=== PATIENT | female | born 1930 | race Caucasian/White ===

== ENCOUNTER 2017-02-17 20:56 | Inpatient (IN) | payer MEDICARE ==
[~2017-02-17] VITALS: Ht 160 cm; Wt 68.0 kg
[2017-02-17] MEDS ORDERED: ZOCOR40 MG PO (21:18)
[2017-02-17] MEDS ORDERED: COUMADIN1 MG PO (21:19)
[2017-02-17] MEDS ORDERED: LANTUS SOL100 UNIT/1 SUB-Q (21:19)
[2017-02-17] MEDS ORDERED: ZESTRIL40 MG PO (21:19)
[2017-02-17] MEDS ORDERED: MAGNESIUM400 M1 PO (21:20)
[2017-02-17] MEDS ORDERED: CITALOPRAM HBR20 MG PO (21:20)
[2017-02-17] MEDS ORDERED: COREG25 MG PO (21:20)
--- NOTE | 2017-02-18 01:05 | NUR ---
PT ARRIVED TO UNIT VIA STRETCHER FROM E.D. PT BELONGINGS LEFT WITH DAUGHTER WHO DID NOT COME TO DEPARTMENT WITH PT. PT ALERT AND ORIENTED ALTHOUGH POOR HISTORIAN WITH HEALTH HISTORY. PT HAS PACEMAKER. PT CAME TO FLOOR ON 2 LPM O2 VIA NASAL CANNULA. PT TRANSFERRED FROM STRETCHER TO BED VIA HOVERMAT WITH x4 ASSIST. PT HAS HI IN PLACE, CLEAR YELLOW URINE DRAINING. RIGHT LEG IS VISIBLY SHORTER THAN LEFT LEG, PT C/O 6-7/10 PAIN, 0.5 MG IV DILAUDID GIVEN. IV SALINE LOCKED, FLUSHES WELL, PATENT AND INTACT. PT DOZING INTERMITTENTLY THOUGH ASSESSMENT, WAKES EASILY TO VERBAL STIMULATION. REGULAR DIET ORDERED FOR PT, WATER GIVEN PER PT REQUEST. CALL LIGHT WITHIN REACH, PT EDUCATION PROVIDED. PT DENIES ANY FURTHER NEEDS AT THIS TIME.
--- NOTE | 2017-02-18 03:00 | NUR ---
DAUGHTER CALLED FOR UPDATE, DAUGHTER [facility] ROOM [facility] IN CASE UNABLE TO REACH BY CELLPHONE AT ANY TIME. PT SLEEPING, RR EVEN AND UNLABORED. PT APPEARS COMFORTABLE AT THIS TIME. CALL LIGHT WITHIN REACH.
--- NOTE | 2017-02-18 04:53 | NUR ---
PT SLEEPING, RR EVEN AND UNLABORED. PT ON 2 LPM O2 VIA NASAL CANNULA. PT APPEARS COMFORTABLE AT THIS TIME. HI DRAINING WITHOUT DIFFICULTY. CALL LIGHT WITHIN REACH.
--- NOTE | 2017-02-18 07:38 | NUR ---
RECIEVED BEDSIDE REPORT FROM SHREYA ARCHER. PT SLEEPING, BREATHING EVEN AND UNLABORED.
--- NOTE | 2017-02-18 10:14 | NUR ---
CALLED DR GREENBERG RE: MAINTINANCE FLUIDS. SHE DOES NOT WANT TO ORDER FLUIDS AT THIS TIME. DR. GREENBERG WILL LOOK AT CHART PRIOR TO ADDING PAIN MEDICATION.
--- NOTE | 2017-02-18 11:09 | NUR ---
PT RESTING IN BED WITH EYES CLOSED. PT OPEN EYES TO ACTIVITY IN ROOM, STATED SHE WAKES EASY AND TO WAKE HER UP IF NEEDED. ENCOURAGED PT TO DRINK WATER.
[2017-02-18] MEDS ORDERED: CARVEDILOL25 MG PO (11:21)
[2017-02-18] MEDS ORDERED: BUMETANIDE1 MG PO (11:21)
[2017-02-18] MEDS ORDERED: TYLENOL EXTRA500 MG PO (11:24)
[2017-02-18] MEDS ORDERED: VITAMIN D2000 UNI1 PO (11:24)
[2017-02-18] MEDS ORDERED: CBD LOTION TOP (11:25)
--- NOTE | 2017-02-18 11:27 | NUR ---
MED REC COMPLETE--PER FAMILY
--- NOTE | 2017-02-18 11:43 | NUR ---
PT RESTING IN BED. SHE IS ALERT AND SOMEWHAT ORIENTED. BY HER ACCENT I COULD TELL SHE WAS NOT ORIGIONALLY FROM [place]. SHE SHARED WITH ME THAT SHE ESCAPED [place] DURING [place]. SHE IS HERE WITH HER DAUGHTER AND SON IN LAW AT THE [place] WHEN SHE FELL. SHE FELS SHE IS BEING PUNISHED FOR GAMBLING AT [employer]. PT REQUESTED PRAYER, WILL FOLLOW NEEDED
--- NOTE | 2017-02-18 13:55 | NUR ---
CALLED DR GREENBERG REGARDING LOW URINE OUTPUT. PT HAD 58ML OUTPUT IN [address] GREENBERG STATED TO ENCOURAGE FLUID INTAKE. SHE DOES NOT WANT TO START IV FLUIDS DUE TO HX OF CHF.
--- NOTE | 2017-02-18 14:16 | NUR ---
PT SLEEPING, SOFTLY SNORING. PT APPEARS TO BE RELAXED AND COMFORTABLE.
--- NOTE | 2017-02-18 15:54 | NUR ---
TALKED WITH PT AND HER DAUGHTER THIS AM REGARDING WHERE THEY WANT HER TO GO FOR REHAB AND THEY BOTH STATED THEY WANTED HER TO GO TO [facility] IN [place]. I CALLED AND TALKED WITH LM AT [facility] AND SHE WOULD LIKE US TO FAX PAPERWORK AFTER HER SURGERY. PHONE NUMBER TO [facility] IS [phone] AND FAX IS [phone]. TOLD HER I WOULD FAX SOON THERE WERE RESULTS FROM OR AND PT NOTES. SHE DID STATE THEY HAVE BEDS OPEN NOW.,
--- NOTE | 2017-02-18 16:18 | NUR ---
ATTEMPTED IV START X6 BY 3 RNS, UNSUCCESSFUL. PT HAS LIMITED ALEX ACCESS, FIELD START IS PATIENT. PT BECAME VERY AGITATED AND UPSET. PT WAS GIVEN IV DILAUDID FOR HIP PAIN. ICE PACK APPLIED TO HIP WELL. PT RELAXING WITH WARM BLANKETS NOW. WILL REATTEMPT AT A LATER TIME.
--- NOTE | 2017-02-18 16:39 | NUR ---
Didn't feel like having a bed bath today because had one yesterday.
--- NOTE | 2017-02-18 17:38 | NUR ---
PT RIGHT HIP VERY PAINFUL, PRN DILAUDID EFFECTIVE. 3 RNS ATTEMPTED IV START X4, UNSUCESSFUL. PT WAS VERY AXIOUS AND TENSE R/T IV ACCESS. FIELD START IS FLUSHING WELL. PT IS MORE RELAXED AT THIS TIME, REPORTED SOME NAUSEA R/T STRESS FROM IV ATTEMPTS. ZOFRAN EFFECTIVE. PT DECLINING TO EAT MUCH, IS DRINKING ENSURE. LOW URINE OUTPUT IN MD SUSSY AWARE. ENCOURAGE FLUID INTAKE.
--- NOTE | 2017-02-18 18:49 | NUR ---
PT DECLINED PAIN MEDICATION AT THIS TIME, STATED "I'M GOOD FOR RIGHT NOW". PT IS AWAKE AND ALERT, RESTS WITH EYES CLOSED. PT'S DAUGHTER AND POA WILL BE IN TO SIGN CONSENT IN EARLY AM.
--- NOTE | 2017-02-18 19:36 | NUR ---
CALLED DR GREENBERG REGARDING LOW URINE OUTPUT OF 75 MLS OVER LAST 4 HOURS, NO NEW ORDERS AT THIS TIME. STATES IF URINE OUTPUT THE SAME DURING THE NIGHT, A CALL DOES NOT NEED TO BE MADE. NO NEW ORDERS FOR MIDNIGHT ONCE PT NPO FOR SURGERY.
--- NOTE | 2017-02-18 21:01 | NUR ---
PT ASSESSMENT COMPLETE. PT RATES PAIN 8-9/10, IV DILAUDID GIVEN. IV POSITIONAL, LEAKS OCCASSIONALLY, WILL CONTINUE TO MONITOR. ICE PACK TO RIGHT HIP, NO BRUISING NOTED, SKIN INTACT. IV SALINE LOCKED. PT SATS 97% ON 2 LPM O2 VIA NASAL CANNULA PER CONTINUOUS PULSE OXIMETER. HI IN PLACE, MINIMAL URINE OUTPUT, MD AWARE. PT DENIES ANY N/V AT THIS TIME. PT ALERT AND ORIENTED, FORGETFUL AT TIMES. CALL LIGHT WITHIN REACH. PT DENIES ANY FURTHER NEEDS AT THIS TIME.
--- NOTE | 2017-02-19 00:22 | NUR ---
PT C/O PAIN, IV LEAKING WITH NO BLOOD RETURN, PT PAINFUL WITH FLUSH, DC'D WITH CATHETER TIP INTACT. x5 ATTEMPTS WITH NO SUCCESS. CALLED MD, NO NEW ORDERS AT THIS TIME.
--- NOTE | 2017-02-19 01:00 | NUR ---
LEAD CARGOMAN CALLED TO ATTEMPT IV START WITH ULTRASOUND. LEAD CARGOMAN ATTEMPTED x3 WITH NO SUCCESS. MD CALLED AND NOTIFIED. PT HAS NO IV ACCESS AT THIS TIME. RECEIVED x1 IM MORPHINE ORDER FOR PAIN. PT RATES PAIN 6/10. CALL LIGHT WITHIN REACH. PT DENIES ANY FURTHER NEEDS AT THIS TIME.
--- NOTE | 2017-02-19 07:04 | HP ---
[facility] [address], [place] [address] Signed HISTORY OF PRESENT ILLNESS: Ms. Pederson is an 86-year-old white female who was doing well until last night. She was out at the [facility] when she took a fall that she went to move from one slot machine to another. Because she was unable to ambulate and having variety of pains, she was brought to the emergency room. She was seen by Dr. Gardner. Dr. Gardner evaluated her numerous complaints. Examination and CT scanning of her head and neck we re unremarkable as far x-rays of her ankles and wrist. However, x-rays of her pelvis and right hip revealed a displaced intertrochanteric hip fracture. She was admitted to the Orthopedic service after Dr. Gardner called me. PAST MEDICAL HISTORY: She is an in sulin-dependent diabetic and has significant peripheral vascular disease and is on a chronic Coumadinization for chronic atrial fibrillation. CURRENT MEDICATIONS: Reviewed by the Hospitalist business systems consultant. ALLERGIES: She denies any medical allergies. PHYSICAL EXAMINATION: GENERAL: On examination, she is elderly female with a mild Kiswahili accent. On examination, she is alert and oriented in really no acute distress, lying in bed. HEENT: Head, ears, eyes, nose, and throat did not reveal any evidence of craniofacial trauma. CHEST: Clear. CARDIAC: Exam reveals an irregular rhythm. ABDOMEN: Nontender. There is no evidence of chest trauma. EXTREMITIES: In terms of the extremities, there is no evidence of trauma i.e., swelling, bruising, or deformity to either of her uppe r extremities and they have a functional range of motion at the shoulders, elbows, wrist, and hands. In terms of her lower extremities, the right leg is severely shortened and externally rotated. She has diminished sensation, but that is symmetrical in waldo th of her feet and the same can be said of her pedal pulses. Her skin, however, is intact over the hip. RADIOLOGIC DATA: X-rays were reviewed along with the x-ray report. She has an intertrochanteric fracture that has fallen into varus and some flexion. We have reviewed with her the treatment alternatives. I have also explained our general recommendation for internal fixation of this particular fracture to decrease overall morbidity and mortality and to mobilize her expeditiously. After outlining all the potential risks and complications, she was agreeable with proceeding. We explained to her, however, that because her chronic coumadinization, we will need to reverse her Electronically Signed By: ELENITA FLEMING MD 02/19/17 0704 PATIENT NAME: JENNIFER PEDERSON HISTORY AND PHYSICAL DATE OF : 32 PHYSICIAN: ELENITA FLEMING MD REPORT #: [id number] REPORT IS CONFIDENTIAL AND NOT TO BE RELEASED WITHOUT AUTHORIZATION [address] [address] Signed anticoagulation. I have told her we will give her some vitamin K today, which I discu ssed with Dr. Zayas and she concurred. We will then plan on hip surgery tomorrow if her repeat INR is less than 1.5. MD FELICIA Ho/Phyllis / [phone] Electronically Signed By: ELENITA FLEMING MD 02/19/17 0704 PATIENT NAME: JENNIFER PEDERSON HISTORY AND PHYSICAL DATE OF : 32 PHYSICIAN: ELENITA FLEMING MD REPORT #: [id number] REPORT IS CONFIDENTIAL AND NOT TO BE RELEASED WITHOUT AUTHORIZATION
--- NOTE | 2017-02-19 08:03 | NUR ---
RECIEVED BEDSIDE REPORT FROM SHREYA ARCHER. PT AWAKE AND ALERT IN BED. PT STATED THE IM PAIN MEDICATION WAS EFFECTIVE. PT STATED SHE WAS COLD ALL NIGHT, BLANKETS REPLACED, ROOM TEMP INCREASED. PT RELAXED.
--- NOTE | 2017-02-19 09:01 | NUR ---
CALL FROM [facility], OR CHARGE NURSE. PT INR 2.1, TOO HIGH FOR SURGERY. ORDERED AN ADDITIONAL VIT K DOSE WITH A LAB DRAW AT 1500.
--- NOTE | 2017-02-19 10:14 | NUR ---
PICC LINE PLACED BY SHREYA CARLISLE. PT TOLERATED WELL. VIT K GIVEN. PT TOLERATED WELL. DR. FLEMING ROUNDED ON PT, ADVISED OF INR 2.1, PLAN OF CARE VIT K AND FROZEN PLASMA. WAITING FOR VERIFICATION OF PICC PLACEMENT.
--- NOTE | 2017-02-19 10:21 | NUR ---
ORAL AND HI CATH CARE DONE. ADJUSTED PATIENT IN BED TO LEFT SIDE. HANDS AND FACE WASHED. PATIENT IN BED WITH CALL BUTTON IN REACH. HAS NO OTHER NEEDS AT THIS TIME.
--- NOTE | 2017-02-19 10:33 | NUR ---
PER MAYLIN, RN DO NOT USE PICC LINE PLACEMENT HAS NOT BEEN VERIFIED. XRAY ENROUTE TO TAKE ADDITIONAL IMAGES.
--- NOTE | 2017-02-19 11:11 | NUR ---
ASKED BY DR. GREENBERG AND DR. FLEMING TO EVALUATE PATIENT FOR POSSIBLE PICC LINE PLACEMENT. PT HAS REPORTEDLY HAD OVER 12 IV ATTEMPTS FOR A PERIPHERAL LINE WITHOUT MUCH SUCCESS. AFTER REVIEWING THE CHART AND INTERVIEWING THE PATIENT, NO ABSOLUTE CONTRAINDICATIONS WERE IDENTIFIED. PATIENT HAS A PACEMAKER ON THE LEFT SIDE OF CHEST, RULING OUT THE LEFT SIDE FOR POTENTIAL PICC LINE PLACEMENT. THE RIGHT ARM WAS NOTED TO HAVE SOME VISIBLE BRUISING ON THE RIGHT UPPER ARM FROM PREVIOUS IV START ATTEMPTS. THE RIGHT ARM WAS EVALUTED USING THE SITE RITE U/S, AND THE BASILIC VEIN WAS LOCATED EASILY AND FOUND TO BE GREATER THAN 8 FR. THE BRACHIAL VEIN WAS ALSO IDENTIFIED AND NOTED TO BE AROUND 7-8 FR BY SITE RITE U/S. THE BASILIC VEIN WAS ACCESSED ON THE FIRST TRY WITHOUT DIFFICULTY, AND THE GUIDEWIRE WAS ADVANCED WITHOUT DIFFICULTY. UPON INSERTING THE PICC LINE, THERE WAS RESISTANCE FELT WHEN THERE WERE 10 CM LEFT TO ADVANCE. THE [employer] GUIDE U/S DEVICE ALSO SHOWED THE CATHETER TO BE SUPERFICIAL. CHEST XRAY WAS TAKEN AND FOUND TO CURLED BACK ON ITSELF. CATHETER PULLED BACK AND THEN REINSERTED, PATIENT TILTED HER HEAD TO THE RIGHT. CATHETER ADVANCED FORWARD WITHOUT DIFFICULTY THIS TIME. ANOTHER CHEST XRAY TAKEN. GUIDEWIRE NOTED TO BE FARTHER ADVANCED THAN THE PICC LINE. GUIDEWIRE THEN REMOVED AND AWAITED CALL FROM RADIOLOGIST. RADIOLOGIST CALLED AT 1030 AND REQUESTED A THIRD CHEST XRAY. CHEST XRAY BEING COMPLETED AT 1120 AND WAITING FURTHER CONFIRMATION FROM RADIOLOGIST.
--- NOTE | 2017-02-19 12:07 | NUR ---
DISCUSSED PT'S PICC LINE WITH DR. CLEVELAND AFTER THIRD CHEST XRAY. PICC LINE PULLED BACK 6 CM IT APPEARED TO HAVE BEEN TOO DEEP. REPEAT CHEST XRAY TAKEN AND PENDING FURTHER DISCUSSION WITH DR. CLEVELAND. RN CARING FOR PATIENT UPDATED ON STATUS OF PICC AND TOLD TO CONTINUE HOLDING OFF BEFORE USING PICC LINE.
--- NOTE | 2017-02-19 12:42 | NUR ---
WAITING FOR PICC VERIFICATION FROM SHREYA CARLISLE.
--- NOTE | 2017-02-19 13:00 | NUR ---
PICC LINE OKAY TO USE PER DR. CLEVELAND. REPORT GIVEN TO SHREYA BARTON.
--- NOTE | 2017-02-19 13:16 | NUR ---
STARTED FROZEN PLASMA INFUSION. VITAL TAKEN. NO ITCHING, CHILLS, PAIN, CONFUSION, NAUSEA, HEADACHE.
--- NOTE | 2017-02-19 13:25 | NUR ---
BLOOD PRODUCTS DOUBLE CHECKED BY SHREYA BARTON AND SHREYA MISHRA.
--- NOTE | 2017-02-19 13:26 | NUR ---
PT IS TO HAVE SURGERY LATER THIS AFTERNOON. SHE SEEMS TO BE IN GOOD SPIRITS. HAD HER LAUGHING AND JOKING. SHE IS VERY COMPLIMENTARY OF THE CARE THE NURSES AND STAFF HAVE GIVEN HER. EXTENDED A BLESSING, WILL CONTINUE TO FOLLOW
--- NOTE | 2017-02-19 13:28 | NUR ---
PT REPORTS NO CHILLS, ITCHING, SWELLING, COUGHING, PAIN, SOB, OR HEADACHE AFTER 15 MINUTES OF INFUSION.
--- NOTE | 2017-02-19 14:08 | NUR ---
PT TOLERATING PLATELETS WELL. NO COMPLAINTS OF CHILLS, SOB, ITCHING, HEADACHE, OR PAIN. VSS.
--- NOTE | 2017-02-19 14:17 | NUR ---
STARTED SECOND BAG OF PLATLETTES. DOUBLE CHECKED BY SHREYA RENEE AND SHREYA MISHRA. VSS, PT REPORTS NO NAUSEA, ITCHING, CHILLS, HEADACHE OR PAIN.
--- NOTE | 2017-02-19 14:28 | NUR ---
PT TOLERATING INFUSION WELL. NO REPORTS OF CHILLS, SOB, PAIN, ITCHING, OR HEADACHE. INCREASED RATE OF TRANSFUSION.
--- NOTE | 2017-02-19 15:30 | NUR ---
PT RESTING WITH EYES CLOSED. TOLERATED INFUSION WELL. PT WIPED DOWN FOR SURGERY. DENTURES REMOVED. INR SENT TO LAB.
--- NOTE | 2017-02-19 16:03 | NUR ---
PT LEFT FOR SURGERY WITH SHREYA DAUGHERTY.
--- NOTE | 2017-02-19 17:52 | NUR ---
PT HAD PICC LINE PLACED IN RIGHT ARM. PT RECIEVED 2 BAGS OF FROZEN PLASMA AND DOSE OF VIT K PRIOR TO SURGERY. PT VERY PAINFUL WITH MOVEMENT. AFTER PRE-OP WIPE DOWN, PT DEVELOPED RED RASHY AREAS ON TRUNK AND FACE WITH SWOLLEN LIPS. AWAREMARCUS ORDERED AND EFFECTIVE. INR 1.4 PRIOR TO SURGERY.
--- NOTE | 2017-02-19 18:42 | NUR ---
02/19/17 184 Shara Kaufman 1835 - pt arrived to pacu. maintaining own airway. cbg = 200, bail bonding agent aware, states no action needed at this time, insulin can continue when pt begins eating on the floor.
--- NOTE | 2017-02-19 19:39 | NUR ---
RECEIVED REPORT FROM DAY SHIFT RN. PATIENT MOVED TO ROOM 120 FROM ROOM 122 BECAUSE PACU STATED "PATIENT MAY NEED TO BE WATCHED A LITTLE EXTRA, PATIENT HAS BEEN PICKING AT TUBES". PATIENT ARRIVED TO THE FLOOR AROUND 193. PATIENT IS DROWSY BUT EASY TO AROUSE. PATIENT DENIES ANY PAIN. PATIENT IS ON 2L VIA NC. PATIENT PLACED ON PULSE OX AND READINGS ARE WNL. PATIENTS IST SET OF POST OP VITALS TAKEN. PATIENTS BED ALRM IS PLACED ON FOR SAFETY. CALL LIGHT IN REACH.
--- NOTE | 2017-02-19 20:05 | NUR ---
CALLED DAUGHTER ANGELITA AND UPDATED THAT PT OUT OF SURGERY AND NOW IN ROOM 120. DAUGHTER STATES SHE WILL BE HERE TO VISIT SHORTLY.
--- NOTE | 2017-02-19 21:48 | NUR ---
PATIENT GIVEN NEW MEDICATIONS PER ORDER. PATIENT RATES PAIN AT A 4/10. PATIENT ASKED QUESTIONS ABOUT NEW MEDICATIONS. ALL QUESTIONS ANSWERED. PATIENT DENIES ANY FURTHER NEEDS. CALL LIGHT IS WITHIN REACH.
--- NOTE | 2017-02-19 22:05 | NUR ---
PATIENT ASSESMENT COMPLETED. PATIENTS POST OP VITALS COMPLETED AND RECORDED. PATIENTS EVENING MEDICATIONS GIVEN PER ORDER. DIAGNOSTIC IMAGING ON THE FLOOR @ 2029. PATIENT GIVEN PRN PAIN MEDICATION AFTER X-RAYS FOR 8/10 PAIN IN HER RIGHT HIP. PATIENT DENIES ANY FURTHER NEEDS. BED ALRM IS ON FOR SAFETY AND CALL LIGHT IS WITHIN REACH.
--- NOTE | 2017-02-19 22:26 | NUR ---
ALL POST OP VITALS COMPLETED AND RECORDED. PATIENT IS RESTING IN BED WITH EYES CLOSED, RR16. PULSE OX READINGS ARE WNL.
--- NOTE | 2017-02-20 00:17 | NUR ---
PATIENT IS RESTING IN BED WITH EYES CLOSED, PULSE OX READINGS ARE WNL. PATIENT SHOWS NO EXPRESSIONS OF PAIN OR DISCOMFORT
--- NOTE | 2017-02-20 01:51 | NUR ---
PATIENTS VITALS TAKEN AND RECORDED. PATIENT RATES PAIN AT A 4/10. PATIENT GIVEN SCHEDULED TYLENOL PER ORDER. PATIENT DENIES ANY FURTHER NEEDS AT THIS TIME. CALL LIGHT IS WITHIN REACH.
--- NOTE | 2017-02-20 03:27 | NUR ---
PATIENT IS RESTING IN BED WITH EYES CLOSED. PATIENT IS ON 4L VIA NC. PATIENT IS ON PULSE OX AND READINGS ARE WNL. CALL LIGHT IS WITHIN REACH.
--- NOTE | 2017-02-20 04:58 | NUR ---
PATIENT ARRIVED BACK TO THE FLOOR FROM SURGERY APPROX. 1930. PATIENT RECEIVED PRN PAIN MEDICATION X1. PATIENT HAS SCHEDULED TYLENOL. PATIENT IS ON A PULSE OX. PATIENT IS NOW ON 4L VIA NC. PATIENT HAS A PICC IN HER RIGHT ARM THAT FLUSHES WELL AND IS HEP LOCKED WHEN NOT IN USE. PATIENT HAS SCDS AND HEEL PROTECTORS. PATIENT IS ON AN ADA/CARDIAC DIET AND IS ADVANCE TOLERATED. PATIENT ATE SHERBERT ARRIVING BACK TO THE FLOOR. NO COMPLAINTS OF NAUSEA. PATIENT HAS A HI. PATIENT HAS AN ICE PACK APPLIED TO RIGHT HIP. PATIENTS DRESSING IS C/D/I. PATIENT IS AAOX3 BUT CAN BE FORGETFUL AT TIMES. BED ALARM PLACED ON FOR SAFETY.
--- NOTE | 2017-02-20 05:35 | NUR ---
PATIENTS VITALS TAKEN AND RECORDED. PATIENT RATES PAIN AT A 3/10. PATIENT DENIES THE NEED FOR PAIN MEDICATION. PATIENT GIVEN SUGAR FREE JUICE. PATIENTS ICE PACK REFILLED AND APPLIED TO RIGHT HIP. PATIENT DENIES ANY FURTHER NEEDS CALL LIGHT IN REACH.
--- NOTE | 2017-02-20 06:34 | NUR ---
PATIENTS MORNING MEDICATIONS GIVEN PER ORDER. PATIENT RATES PAIN AT A 2/10. PATIENT DENIES THE NEED FOR ANY PAIN MEDICATION AT THIS TIME. PATIENT REMAINS ON 3L VIA NC, PULSE OX READINGS WNL. CALL LIGHT IN REACH.
--- NOTE | 2017-02-20 06:49 | NUR ---
PLACED A CALL TO MD ABOUT PATIENTS LOW URINE OUTPUT. NO NEW ORDERS AT THIS TIME.
--- NOTE | 2017-02-20 08:00 | NUR ---
PT SITTING UP IN BED EATING BREAKFAST INDEPENDENTLY. STATES "WHEN I'M NOT MOVING MY HIP DOESN'T HURT AT ALL." DENIES PAIN OR NAUSEA AT THIS TIME. ALERT AND ORIENTED TO ALL BUT CAN BE FORGETFUL. RIGHT HP DRESSING CDI, NO DRAINAGE NOTED. 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 PICC LINE FLUSHES WELL WITH GOOD BLOOD RETURN, DRESSING CDI. CALL LIGHT WITHIN REACH.
--- NOTE | 2017-02-20 08:56 | NUR ---
PATIENT AWAKE RESTING IN BED. SHE DID NOT ENJOY HER BREAKFAST, I OFFERED HER SOMETHING ELSE BUT SHE DENIED. PATIENT IS VERY PLEASENT AND STATED SHE DID NOT NEED ANYTHING AT THIS TIME.
--- NOTE | 2017-02-20 11:45 | NUR ---
PT VERY PAINFUL STATING SHE IS HAVING "EXTREME PAIN." MEDICATED WITH PRN OXY. OFFERED TO REPOSITION PT FOR COMFORT, SHE REFUSED STATING IT HURTS TOO MUCH. CALL LIGHT AND PERSONAL ITEMS WITHIN REACH.
--- NOTE | 2017-02-20 11:48 | NUR ---
GOOD VISIT WITH PT. AT TIMES SHE STRUGGLED TO COMPLETE HER THOUGHTS, BUT SEEMED TO TAKE IT IN STRIDE. TALKED ABOUT HOW MUCH SHE ENJOYED HER VISITS TO [place], AND WOULD GO AGAIN! HER DAUGHTER AND SON IN LAW CAME. I BROUGHT HER A PRAYER SHAWL, SHE SEEMED TO REALLY ENJOY IT. SHE MAKES THEM FOR THE HOSPITAL [place], SHE WILL BE GOING TO A SNF THERE. HAD PRAYER , WILL CONTINUE TO FOLLOW
--- NOTE | 2017-02-20 14:40 | NUR ---
PT ASSISTED UP TO COMMODE FOR BM. PT REQUIRED 3 PERSON ASSIST. PT VERY PAINFUL WITH MOVEMENT, CRYING OUT DURING TRANSFER. PT WAS ABLE TO BARE WEIGHT AND TAKE SMALL PIVOT STEPS WITH WALKER TO BSC. SITTING ON COMMODE NOW GETTING BED BATH BY DISH ROOM WORKER. CALL LIGHT WITHIN REACH.
--- NOTE | 2017-02-20 14:57 | NUR ---
PATIENT UP TO COMMODE TO WITH 3 PERSON ASSIST. PATIENT BECAME FAINT ON WAY BACK TO BED. DISCUSS WITH DR. GREENBERG ON WHETHER WE SHOULD REPEAT H/H LABS.
--- NOTE | 2017-02-20 16:35 | NUR ---
PT RESTING IN BED ON BACK WITH EYES CLOSED, RESP EVEN AND UNLABORED.
--- NOTE | 2017-02-20 17:03 | NUR ---
PT MEDICATED WITH 10MG PO OXY FOR C/O 5 PAIN RIGHT HIP PAIN. PT REPORTS BEING FEARFUL OF FALLING AGAIN AND OF BEING PAINFUL. THERAPEUTIC COMMUNICATION COMPLETED. PT DENIES FURTHER NEEDS OR CONCERNS. CALL LIGHT WITHIN REACH.
--- NOTE | 2017-02-20 18:14 | NUR ---
PT REPORTS THAT PAIN IS IMPROVING SLIGHTLY WITH INCREASED PAIN MEDS BUT PT IS BECOMING SLIGHTLY DISORIENTED. EASILY REORIENTED BUT OCC SAYS THINGS NOT APPROPRIATE TO SITUATION AND CANNOT KEEP CONSISTENT TRAIN OF THOUGHT. PT SLOWER TO RESPOND WITH ORIENTATION QUESTIONS BUT ANSWERS CORRECTLY.
--- NOTE | 2017-02-20 19:55 | NUR ---
RECEIVED REPORT FROM DAY SHIFT RN. PATIENT DENIES ANY PAIN AT THIS TIME. CALL LIGHT IS WITHIN REACH.
--- NOTE | 2017-02-20 21:49 | NUR ---
PATIENT ASSESMENT COMPLETED. PATIENT RATES PAIN IN HER RIGHT HIP AT A 6/10. PATIENT GIVEN PRN PAIN MEDICATION PER ORDER. PATIENT GIVEN EVENING MEDICATIONS PER ORDER. PATIENTS ICE PACK REFILLED AND APPLIED TO HER RIGHT HIP. PATIENT HAS A HI IN PLACE. OUTPUT IS LOW BUT QS. PATIENT PATIENT IS ON PULSE OX AND READINGS ARE WNL. PATIENT IS ON 3L VIA NC. PATIENTHAS A PICC IN HER RIGHT ARM AND IS ON CONTINUOUS FLUIDS. PATIENT IS AAO, BUT IS FORGETFUL AT TIMES. PATIENTS BED ALARM IS ON FOR SAFETY. CALL LIGHT IS WITHIN REACH.
--- NOTE | 2017-02-20 22:07 | NUR ---
ORAL CARE PERFORMED. DENTURES REMOVED AND PLACE IN CONTAINER IN THE BATHROOM.
--- NOTE | 2017-02-21 00:16 | NUR ---
PATIENT IS RESTING IN BED WITH EYES CLOSED. PULSE OX READINGS ARE WNL. CALL LIGHT IN REACH.
--- NOTE | 2017-02-21 02:51 | NUR ---
PATIENT REPOSITIONED IN BED. PATIENT IS VERY PAIN FUL WITH MOVEMENT. PATIENT GIVEN SCHEDULED TYLENOL AND PRN PAIN MEDICATION PER ORDER. PATIENT RATES PAIN AT A 7/10 IN HER RIGHT HIP. PATIENT DENIES ANY FURTHER NEEDS CALL LIGHT IS WITHIN REACH.
--- NOTE | 2017-02-21 04:46 | NUR ---
PATIENT IS RESTING I BED WITH EYES CLOSED. PATIENT REMAINS ON 3L VIA NC. PULSE OX READINGS ARE WNL.
--- NOTE | 2017-02-21 05:22 | NUR ---
PATIENT RESTED WELL THROUGHOUT THE SHIFT. PATIENT RECEIVED X2 PRN PAIN MEDICATION FOR RIGHT HIP PAIN. PATIENT HAS A HI IN PLACE. PATIENT IS ON A CARDIAC/ADA DIET AND HAS A DECREASED APPETITE. PATIENT HAS SCDS AND HEEL PROTECTORS IN PLACE. ICE PACK APPLIED TO RIGHT HIP. PATIENTS DRESSIN SAHRA RIGHT HIP IS C/D/I, WITH NO SHADOWING PRESENT. PATIENT IS AAO, BUT AT TIMES IS FORGETFUL AND CONFUSED. PATIENT IS EASILY REORIENTED. PATIENT IS ON 3L VIA NC. PATIENT HAS A PICC IN HER RIGHT ARM.
--- NOTE | 2017-02-21 06:23 | NUR ---
PATIENT CONTINUES TO HAVE LOW URINE OUTPUT. PATIENT EVALUATED BY RT. PATIENT CONTINUES TO FINE CRACKLES IN THE BASES, BUT NO CHANGES SINCE BEGINNING OF THE SHIFT. PATIENT ALSO BLADDER SCANNED AND HAS 12MLS OF RESIDUAL IN HER BLADDER. PATIENT RATES PAIN AT A 2/10 WHEN NOT MOVING. PATIENT DENIES THE NEED FOR PAIN MEDICATION. PATIENT IS ON 3L VIA NC AND PULSE OX READINGS ARE WNL. PATIENTS DRESSSING ON RIGHT HIP IS C/D/I, WITH NO DRAINAGE NOTED. PATIENT DENIES ANY FURTEHR NEEDS CALL LIGHT IN REACH.
--- NOTE | 2017-02-21 07:10 | NUR ---
BEDSIDE HANDOFF REPORT RECEIVED FROM PORTFOLIO ADMINISTRATOR RN. PT SLEEPING. CONTINUOUS PULSE OX IN PLACE, O2 SATS 97% ON 3L NC. IV FLUIDS INFUSING LR AT 125 ML/HR. HI CATH IN PLACE.
--- NOTE | 2017-02-21 08:30 | NUR ---
PT RESTING IN BED. PT ORIENTED, PT DOWSY, FALLING ASLEEP EASILY, AROUSABLE TO VOICE. PT DENIES PAIN. PT LUNG SOUNDS WITH FINE CRACKLES IN BASES, O2 SATS 97% ON 3L NC. PT BOWEL TONES ACTIVE, DENIES NAUSEA. PT WITH DRESSING TO RIGHT HIP, CDI. PT WITH SCDS AND HEEL PROTECTORS IN PLACE. CMS INTACT, PULSES PALPABLE. PT WITH HI CATH IN PLACE, DRAINING SMALL AMOUNTS OF CONCENTRATED URINE. PT ENCOURAGED TO EAT EAT BREAKFAST. PT DENIES NEEDS AT THIS TIME.
--- NOTE | 2017-02-21 10:15 | NUR ---
FAXED CHART NOTES TO [facility] THIS AM AFTER TALKING WITH LM-PARKER. FAXED FACESHEET, ER NOTES, H AND P, CONSULT, PROG NOTES, OP NOTE, IMAGING, MEDS, LAB, AND PT EVAL
--- NOTE | 2017-02-21 10:16 | NUR ---
TALKED WITH DAUGHTER ABOUT PT DC IN FUTURE AND HOW THEY WANTED TO TAKE PT TO [place]. STATED THEY HAD LOOKED INTO TRANSPORT AND DECIDED THEY WOULD TAKE HER IN THE CAR AND HAVE STAFF HELP HER GET INTO CAR AND THEN STAFF UP THERE HELP GET HER OUT OF CAR. UNSURE OF EXACT DC DATE. FAMILY STATED THEY WOULD BE HERE AROUND [place] TODAY
--- NOTE | 2017-02-21 10:20 | NUR ---
PATIENT SLEEPING IN BED. I CAME IN TO TAKE VITALS AND NURSE JOSEPH ASKED IF I COULD HELP ASSIST PATIENT WITH EATING DUE TO HER BEING SO DROWSY. I GOT PATIENT TO TAKE A COUPLE BITS HOWEVER SHE WOULD FALL ASLEEP WHILE CHEWING. WHEN ASKING IF SHE WANTED ANOTHER BITE SHE REPLIES WITH "JUST A MINUTE". I LET NURSE RUIZ KNOW. PATIENT IS BACK SLEEPING WITH CALL LIGHT WITHIN REACH.
--- NOTE | 2017-02-21 11:26 | NUR ---
PT CONTINUES TO BE DROWSY, FALLS ALEEPS DURING CONVERSATION. PT AROUSABLE TO VOICE. PT WITH POOR APPETITE. BLOOD GLUCOSE 90, SS INSULIN HELD PER ORDER. PT ASSISTED WITH ORDERING LUNCH. PT DENIES NEEDS AT THIS TIME.
--- NOTE | 2017-02-21 13:18 | NUR ---
FIRST UNIT OF PRBCs STARTED AT 1316 WITH JOSEPH AND JOHN CASH CO-SIGNING AND VERIFYING CORRECT DATA. PT VERY LETHARGIC TODAY. PALLOR PALE. UNABLE TO STAY AWAKE TO EAT MUCH. JOHN CASH STAYING IN ROOM FOR FIRST 15 MIN OF INFUSION TO MONITOR FOR ADVERSE REACTIONS. VITAL SIGNS WNL PRE-INFUSION. INFUSING AT 60ML/HR NOW. WILL INCREASE IF NO REACTION OCCURS.
--- NOTE | 2017-02-21 13:32 | NUR ---
PT SLEEPING. NO ADVERSE REACTION NOTED DURING FIRST 15 MINUTES OF FIRST UNIT OF PRBCs. INCREASED INFUSION RATE TO 120CC/HR
--- NOTE | 2017-02-21 14:20 | NUR ---
MD NOTIFIED OF POOR URINE OUTPUT, NO NEW ORDERS. CONTINUE TO MONITOR URINE OUTPUT AFTER BLOOD TRANSFUSION.
--- NOTE | 2017-02-21 14:55 | NUR ---
SECOND UNIT OF PRBC STARTED. DOUBLE RN VERIFICATION WITH JOHN IRWIN RN. RN REMAINED WITH PT DURING FIRST 15 MINUTES OF TRANSFUSION. PT HYPERTENISVE, BLOOD PRESSRE WITH >20 POINT SYSTOLIC INCREASE, LUNG SOUNDS UNCHANGED WITH FINE CRACKLES TO BASES, NO SIGNS OF RESPIRATORY DISTRESS. MD NOTIFIED, OKAY TO CONTINUE WITH TRANSFUSION. PT BATHED WITH SURVEY PARTY CHIEF.
--- NOTE | 2017-02-21 17:52 | NUR ---
PRBC UNIT 1 OF 2 COMPLETED. TWO RN VERIFICATION WITH JOHN IRWIN RN. JOHN RN STAYED WITH PT DURING FIRST 15 MINUTES OF TRANSFUSION. NO S/S OF TRANSFUSION REACTION. PT TOLERATED TRANSFUSION WELL.
--- NOTE | 2017-02-21 18:15 | NUR ---
PT ORIENTED, VERY DROWSY FOR MOST OF SHIFT. PT ON 2L NC, LUNG SOUNDS WITH FINE CRACKLES IN BASES, O2 SATS 94%. PT RECEIVED 2 UNITS OF PRBC. PT WITH POOR APPETITE, EATING SMALL AMOUNTS OF APPLE SAUCE WITH MEDICATIONS, POOR FLUID INTAKE. HI CATH REMOVED AT 1710, POOR URINE OUTPUT, MD AWARE. PT WORKED WITH PHYSICAL THERAPY, SAT AT EDGE OF BED, UNABLE TO STAND. PT PAIN WELL CONTROLLED WITH PO TYLENOL. DRESSING CDI.
--- NOTE | 2017-02-21 20:18 | NUR ---
RECEIVED REPORT FROM DAY SHIFT RN. PATIENT IS RESTING IN BED WITH EYES CLOSED. PULSE OX READINGS ARE WNL.
--- NOTE | 2017-02-21 20:59 | NUR ---
BLOOD ADMIN COMPLETED AT 2027. VITALS TAKEN AND RECORDED. NO REACTION NOTED. PATIENT DENIES ANY NEEDS AT THIS TIME. CALL LIGHT IS WITHIN REACH.
--- NOTE | 2017-02-21 22:45 | NUR ---
PATIENT ASSESMENT COMPLETED. PATIENT HAD A LARGE BOUT OF INCONTINENCE. PATIENTS BEDDING CHANGED AND ATTEND PUT INTO PLACE. PATIENTS EVENING MEDICATIONS GIVEN PER ORDER. PATIENT REMAINS ON 2L VIA NC AND PULSE OX IS IN PLACE. PULSE OX READINGS ARE WNL. PATIENT COMES IN AND OUT OF ORIENTATION. PATIENT IS EASILY REORIENTED. PATIENT HAS BEEN SPEAKING IN DANISH. PATIENTS SURGICAL SITE ON HER RIGHT HIP IS OPEN TO AIR, ABIDA ARE PRESENT, AND IT IS WELL APPROXIMATED. PICC IN PATIENTS RIGHT ARM IS NOW HEPLOCKED PER ORDER. ICE PACK PLACED ON PATIENTS RIGHT HIP. SCDS AND HEEL PROTECTORS IN PLACE. CALL LIGHT IN REACH.
--- NOTE | 2017-02-22 00:20 | NUR ---
PATIENT IS RESTING IN BED WITH EYES CLOSED. PULSE OX READINGS ARE WNL. CALL LIGHT IN REACH.
--- NOTE | 2017-02-22 02:53 | NUR ---
PATIENTS ATTEND CHANGED AND ZE CARE PERFROMED. PATIENT IS INCREASINGLY RESTLESS. PATIENT GIVEN PRN OXY PER ORDER. PATIENT CONTINUES TO SPEAK IN STATELESS. PATIENTS BED ALARM IS ON FOR SAFETY AND CALL LIGHT IN REACH.
--- NOTE | 2017-02-22 04:27 | NUR ---
PATIENT CONTINUES TO REST IN BED WITH EYES CLOSED. PATIENT IS TALKING IN CYMRO IN HER SLEEP. PATIENT RAMINS ON 2L VIA NC AND PULSE OX READINGS ARE WNL. CALL LIGHT IN REACH.
--- NOTE | 2017-02-22 05:10 | NUR ---
PATIENT RESTED ON AND OFF THROUGHOUT THE SHIFT. PATIENT HAS BEEN SPEAKING IN BHUTANESE. PATIENT IS INCREASINGLY CONFUSED AT TIMES. PATIENT DOES OBEY COMMANDS. PATIENT HAS BEEN TITRATED DOWN TO 1L VIA NC. PATIENT IS ON CONTINUOUS PULSE OX. PATIENT IS INCONTINENT AND AN ATTEND IS IN PLACE. PATIENT HAS SCDS AND HEEL PROTECTORS IN PLACE. PATIENT HAS AN ICE PACK APPLIED TO RIGHT HIP. PATIENT HAS PICC IN RIGHT ARM THAT IS HEP LOCKED. PATIENT IS WEIGHT BEARING TOLERATED. PATIENT HAS NOT BEEN ABLE TO TOLERATE AMBULATION. PATIENT IS PANFUL WITH MOVEMENT. BED ALARM IS ON FOR SAFETY.
--- NOTE | 2017-02-22 06:10 | NUR ---
PATIENTS ATTEND CHANGED AND ZE CARE PERFOMED. PATIENT COMPLLAINS OF CHEST PAIN. EKG COMPLETED. PATIENT HAS ELEVATED BP. NOTIFIED DR STOVER. NO NEW ORDERS. CONTINUE TO MONITOR BP. PATIENT IS NOW ON 1L AND PULSE OX. NEW ICE PACK PLACED ON RIGHT HIP. PATIENT CONTINUES TO HAVE SCATTERED CONVERSTATIONS AND SPEAK IN ZAMBIAN. CALL LIGHT IN REACH AND BED ALARM ON.
--- NOTE | 2017-02-22 06:56 | NUR ---
PLACED CALL TO HOSPITALIST REGARDING INCREASED BP. VERBAL ORDER TO GIVEN ANGELY MEDICATION EARLY WHEN PATIENT AWAKENS. WILL CONTINUE TO MONITOR PATIENT.
--- NOTE | 2017-02-22 07:10 | NUR ---
BEDSIDE HANDOFF REPORT RECEIVED FROM VARNISHING MACHINE OPERATOR RN. PT RESTIN GIN BED. PT MORE ALERT THIS AM. PT DENIES NEEDS AT THIS TIME. O2 SATS 94% ON 1L NC.
--- NOTE | 2017-02-22 08:07 | NUR ---
pt blood glucose 53, pt provided 8 oz apple juice. pt assisted onto bedpan, able to void. pt assisted with ordeing breakfast. pt denies needs at this time. will continue to monitor and recheck blood glucose.
--- NOTE | 2017-02-22 08:34 | NUR ---
MD NOTIFIED OF HYPERTENSION AND HYPOGLYCEMIA. BLOOD SUGAR NOW 95, PT EATING BREAKFAST AND PROVIDED 8 OZ APPLE JUICE. MD VERBAL ORDER TO HOLD AM DOSE OF LEVEMIR. AND TO MONITOR BLOOD PRESSURE.
--- NOTE | 2017-02-22 09:52 | NUR ---
PT IS RESTING IN BED WITH EYES CLOSED, RESPERATIONS EVEN. PT VITALS WERE TAKEN EARLIER SO I DID NOT RETAKE THEM. PT'S CUP WAS EMPTY SO REFILLED IT WITH ICE WATER.
--- NOTE | 2017-02-22 10:20 | EKG ---
[facility] [address] [place] [address] Signed Ventricular-paced rhythm Abnormal ECG No previous ECGs available Confirmed by JANAY STOVER MD ([id number]) on 02/22/2017 10:20:33 AM Electronically Signed By: JANAY STOVER MD 02/22/17 1020 PATIENT NAME: JENNIFER DEWEY Electrocardiogram DATE OF : 32 PHYSICIAN: JANAY STOVER MD REPORT #: [id number] REPORT IS CONFIDENTIAL AND NOT TO BE RELEASED WITHOUT AUTHORIZATION
--- NOTE | 2017-02-22 10:32 | NUR ---
PT STATES PAIN IS HIGH, UNABLE TO RATE. PT GIVEN 5 MG OXYCODONE. PT ASSISTED ONTO BEDPAN FOR BOWEL MOVEMENT.
--- NOTE | 2017-02-22 11:10 | NUR ---
RECIEVED A PHONE CALL FROM LM AT [facility] INQUIRING WHEN WE WOULD BE SENDING PT. INFORMED HER IT MAY BE TOMORROW OR SATURDAY POSS SATURDAY. LM STATES THAT IF WE WERE NOT ABLE TO DC HER SHORTLY TODAY THEN THEY WOULD NOT BE ABLE TO TAKE HER UNTIL SATURDAY AT THE EARLIEST.
--- NOTE | 2017-02-22 11:18 | NUR ---
MD TO BEDSIDE TO EVALUATE PT. FAMILY AT BEDSIDE. DISCUSSED BARRIER TO DSICAHRGE. PT TO WORK WITH PHYSICAL THERAPY TODAY, IF ABLE TO GET TO CHAIR, PT CAN DISCHARGE TO REHAB WITH FAMILY.
--- NOTE | 2017-02-22 14:49 | NUR ---
WALKED INTO 'S , HER EYES CLOSED-SPEAKING IN FRENCH. SHE CAME TO, RECOGNIZED ME AND ASKED ME TO GIVE HER LAST RIGHTS. SHE SAID SHE IS GOING TO TOMORROW. WE VISITED [facility], AND SHE BEGAN TO TELL ME THAT SHE JUST CAN'T THINK STRAIGHT. SHE DID HAVE A MARKED DECREASED IN COGNITIVE ABILITY FROM JUST YESTERDAY, AND SHE SEEMED TO KNOW IT. SHE ASKED ME TO PRAY FOR HER-WHICH I DID. SHE TRIED TO BRITTANY ON A THOUGHT AND COULD NOT COMPLETE IT. THIS FRUSTRATED HER AND SHE SAID "I CAN'T EVEN TALK, I AM GOING TO TOMORROW". SHE ASKED ME TO KEEP CHECKING ON HER, WHICH I WILL.
--- NOTE | 2017-02-22 14:58 | NUR ---
PT IS CURRENTLY RECLINING IN CHAIR RESTING WITH EYES CLOSED, RESPERATIONS EVEN. PT DID NOT NEED ANYTHING AT THE MOMENT
--- NOTE | 2017-02-22 17:15 | NUR ---
PT SITTING IN CHAIR, EATING DINNER, POOR APPETITE. PT STATES PAIN IS HIGH TO RIGHT HIP, PT GIVEN 5 MG PO OXYCODONE. PT REQUESTING TO GO TO BED, 2 PA WITH ASSIST TO STAND SLING. PT REPOSITIONED IN BED. SCD AND HEEL PROTECTORS IN PLACE. PT LUNG SOUNDS CLEAR, ON 1L NC. PT RIGHT HIP INCISIONS WITH STAPES, EDGES WELL APPROXIMATED, NO DRAINAGE NOTED. PT DENIES NEEDS AT THIS TIME.
--- NOTE | 2017-02-22 18:03 | NUR ---
PT IS SITTING UP IN BED, REFUSED TO EAT DINNER BUT FINALLY AGREED TO EAT SOME CHOCOLATE PUDDING. PT ALSO REFUSED BED BATH. STATING SHE'S JANIYA TO . NURSE AWARE
--- NOTE | 2017-02-22 18:08 | NUR ---
PT MORE ALERT TODAY. PT UP TO CAHIR WITH PHYSICAL THERAPY, 2PA, DOES NOT STAND OR FOLLOW COMMANDS WELL. PT ON 1L NC, LUNG SOUNDS CLEAR. PT ON CARDIAC/ADA DIET, POOR APPETITE. PT HYPOGLYCEMIC THIS AM, LEVEMIR DISCONTINUED. PT INCONTINENT OF URINE AT TIMES, VOIDSING QS. PT HAD LOOSE BM TODAY. PLAN TO CONTINUE THERAPY, POSSIBLE DISCHARGE ON SATURDAY.
--- NOTE | 2017-02-22 19:05 | NUR ---
BEDSIDE SHIFT REPORT RECEIVED FROM SHREYA RUIZ. PT IS CURRENTLY SITTING UP IN BED. 1L O2 VIA NC AND PULSE OX IN PLACE. PICC H/L. SCD'S ON. PT HAS CALL LIGHT WITHIN REACH AND DENIES NEEDS.
--- NOTE | 2017-02-22 21:05 | NUR ---
PT INCONTINENT OF LARGE AMOUNT OF URINE, NEW BEDDING, ATTENDS, CHUX, AND GOWN PROVIDED, EZ-CARE DONE. ASSESSMENT COMPLETED. PT IS ALERT/ORIENTED AT THIS TIME, BUT FORGETFUL, SLIGHTLY ANXIOUS. LUNGS CLEAR, DIM IN BASES, 1L O2 VIA NC IN PLACE. PT HAS PACEMAKER, MURMUR NOTED. BOWEL TONES ACTIVE, DENIES NAUSEA. RIGHT HIP SURGICAL SITE IS WELL-APPROXIMATED, ABIDA INTACT, NO DRAINAGE NOTED. REDNESS NOTED TO BUTTOCKS, AND SCATTERED BRUISES PRESENT ON ARMS. SCD'S IN PLACE. PT REPORTS 8/10 PAIN, SCHEDULED TYLENOL GIVEN. DENIES FURTHER REQUESTS AT THIS TIME, WILL CONTINUE TO MONITOR.
--- NOTE | 2017-02-22 22:05 | NUR ---
PT CONTINUES TO RATE PAIN IN RIGHT HIP 8/10, 10MG PO OXYCODONE GIVEN. PICC HAS GOOD BLOOD RETURN, FLUSHED WITH SALINE AND HEPARIN LOCKED. DENIES FURTHER REQUESTS AT THIS TIME.
--- NOTE | 2017-02-22 23:00 | NUR ---
PT PLACED ON PULSE OX PER ORDER. ATTENDS DRY AT THIS TIME, WILL CONTINUE TO MOITOR.
--- NOTE | 2017-02-22 23:26 | NUR ---
PT APPEARS TO BE SLEEPING, NO APPARENT DISTRESS. RESPIRATIONS EVEN AND UNLABORED.
--- NOTE | 2017-02-23 02:00 | NUR ---
PT CALLED OUT, IN TO CHECK ON HER, SHE'D BEEN IN CONTINENT OF URINE. NEW ATTENDS AND ZE-CARE PROVIDED. REPORTS 8/10 PAIN IN RIGHT HIP, SCHEDULED TYLENOL AND 5MG PO OXYCODONE PROVIDED. ASSESSMENT COMPLETED, NO CHANGES FROM PREVIOUS ASSESSMENT. SURGICAL SITE TO RIGHT HIP REMAINS WELL-APPROXIMATED, ABIDA INTACT, NO DRAINAGE NOTED. 1L O2 VIA NC AND PULSE OX IN PLACE. WILL CONTINUE TO MONITOR.
--- NOTE | 2017-02-23 04:11 | NUR ---
PT APPEARS TO BE SLEEPING, NO APPARENT DISTRESS. RESPIRATIONS ARE EVEN AND UNLABORED.
--- NOTE | 2017-02-23 05:12 | NUR ---
PT SLEPT WELL. PAIN WELL CONTROLLED WITH SCHEDULED TYLENOL AND PRN OXYCODONE. LUNGS CLEAR, 1L O2 VIA NC, PULSE OX. PT HAS PACEMAKER AND MURMUR. BOWEL TONES ACTIVE, NO NAUSEA. NOT BEEN OOB, BUT IS HEAVY 2-PA WITH FWW. INCONTINENT OF URINE, ATTENDS IN PLACE. SURGICAL SITE TO RIGHT HIP IS OPEN TO AIR, ABIDA INTACT, WELL-APPROXIMATED, NO DRAINAGE. ICE PACK IN PLACE. SCD'S AND HEEL PROTECTORS. ADA/CARDIAC DIET, ACCUCHECKS, SS. PT IS FORGETFUL, ANXIOUS AT TIMES, NEEDS REASSURANCE.
--- NOTE | 2017-02-23 05:56 | NUR ---
SPOT CHECKED PT'S BLOOD SUGAR SINCE SHE HAD BEEN HYPOGLYCEMIC YESTERDAY MORNING. THIS MORNING HER CB.
--- NOTE | 2017-02-23 07:10 | NUR ---
BEDSIDE HANDOFF REPORT RECEIVED FROM NONPROFIT DIRECTOR RN. PT RESTING IN BED, LEFT UNDISTURBED.
--- NOTE | 2017-02-23 07:17 | NUR ---
CALLED DR. STOVER TO INFORM HIM OF ELEVATED BP, HE INSTRUCTED TO GIVE BP MEDS EARLY THIS MORNING.
--- NOTE | 2017-02-23 07:55 | NUR ---
PT RESTING COMFORTBALY IN BED. PT RATING PAIN 7-8/10, GIVEN TYLENOL AND 5 MG OXYCODONE, ICE PACK TO RIGHT HIP. PT SLIGHTLY CONFUSED, SPEAKING IN ARABIC, REORIENTS SELF QUICKLY. PT LUNG SOUNDS CLEAR, ON 1L NC, ATTEMPTED ROOM AIR TRIAL, DESATS TO LOW TO MID 80'S, PLACED BACK ON 1L NC, CONTINUOUS PULSE OX IN PLACE. PT WITH HX NEUROPATHY, PULSES INTACT, WEAK RLE. SCDS AND HEEL PROTECTORS IN PLACE. RIGHT HIP INCISIONS OPEN TO AIR, NO DRAINAGE NOTED. DISCUSSED PLAN OF CARE WITH PT. PT GIVEN ANTIHYPERTENSIVES PER MD ORDER FOR ELEVATED BLOOD PRESSURE. PT DENIES NEEDS AT THIS TIME.
--- NOTE | 2017-02-23 10:18 | NUR ---
PT IS SITTING UP IN CHAIR WITH CALL LIGHT IN REACH. PT ASKED FOR MORE ICE WATER. PT ALSO AGREED TO SHOWER
--- NOTE | 2017-02-23 11:45 | NUR ---
PT ASSISTED TO BEDSSIE COMMODE, VOIDED. PT ASSISTED TO BED. FAMILY AT BEDSIDE. PT CONTINUES TO BED CONFUSED. FAMILY STATES "SHE IS VERY SENSITIVE TO PAIN MEDICATION". PT REORIENTS EASILY. PT DENIES NEEDS AT THIS TIME.
[2017-02-23] MEDS ORDERED: OXYCODONE HCL5 MG PO (13:00)
--- NOTE | 2017-02-23 13:15 | NUR ---
PT CONFUSED, HALLUCINATING, SEEING PEOPLE AND MOTHS IN THE ROOM, SCREAMING. PT REORIENTED AND CALMED. BED ALARM IN PLACE. MUSIC ON.
--- NOTE | 2017-02-23 14:49 | NUR ---
PT IS SITTING UP IN BED EATING HER LUNCH
--- NOTE | 2017-02-23 15:40 | NUR ---
PT USED BEDSIDE COMMODE THEN GOT A COMPLETE BED BATH, PT IS NOW BACK IN BED RESTING WITH CALL LIGHT IN REACH AND BED ALARM ON
--- NOTE | 2017-02-23 16:14 | NUR ---
DAUGHTER ANGELITA CALLED AND NOTIFIED OF DISCHARGE TIME OF 0830 TO ENSURE ARRIVE AT REHAB FACILITY BEFORE 1200. DAUGHTER VERBALIZED UNDERSTANDING AND STATES SHE WILL AT BEDSIDE BEFORE 0830.
--- NOTE | 2017-02-23 17:30 | NUR ---
pt assisted to bedside commode. pt with medium bowel movement and voided. pt assisted to chair and encouraged to eat dinner, poor appetite. pt continues to be confused and is having hallucinations. chair alarm in place.
--- NOTE | 2017-02-23 17:50 | NUR ---
PT ON 1L NC, LUNG SOUNDS CLEAR. PT PAIN WELL CONTROLLED WITH TYLENOL, RECEIVED 5MG OXYCODONE THIS AM, PT BECAME MORE CONFUSED AFTER OXYCODONE, PT ABLE TO AMBULATE WITHOUT COMPLAINT OF PAIN, OXYCODONE HELD. PT WITH POOR APPETITE, ADA DIET. PT UP WITH 1-2 PA AND FWW, ABLE TO AMBULATE TO CHAIR AND BEDSIDE COMMODE. PT VOIDING QS, HAD BM TODAY. RIGHT HIP INCISIONS OPEN TO AIR, NO DRAINAGE NOTED, ICE PACK IN PLACE. PLAN TO DISCHARGE AT 0830 TOMORROW.
--- NOTE | 2017-02-23 18:43 | NUR ---
PT IS SITTING UP IN CHAIR LISTENING TO MUSIC ON TV. PT ASKED FOR PILLOW UNDER LEGS.
--- NOTE | 2017-02-23 19:10 | NUR ---
BEDSIDE SHIFT REPORT RECEIVED FROM SHREYA RUIZ. PT IS ALERT, SITTING UP IN CHAIR, CHAIR ALARM ON. 1L O2 VIA NC IN PLACE. PICC H/L. CALL LIGHT WITHIN REACH, WILL CONTINUE TO MONITOR.
--- NOTE | 2017-02-23 20:20 | NUR ---
ASSESSMENT COMPLETED. PT RESTING IN BED. CONFUSED, TALKING TO UNSEEN OTHERS. SCHEDULED TYLENOL GIVEN. LUNGS CLEAR, 1L O2 VIA NC. PACEMAKER AND MURMUR. BOWEL TONES ACITVE, MIRALAX HELD DUE TO SOFT BM'S TODAY. RIGHT HIP SURGICAL SITE OPEN TO AIR, UPPER SITE HAS SCANT AMOUNT OF OLD DRIED DRAINAGE PRESENT. EDGES ARE WELL-APPROXIMATED, ABIDA INTACT. CB, [address] STOVER NOTIFIED OF BP: 187/80, NO NEW ORDERS RECEIVED AT THIS TIME. SCDS IN PLACE. PICC HAS GOOD BLOOD RETURN, FLUSHED AND HEPARIN LOCKED. PT DENIES FURTHER REQUESTS, CALL LIGHT IS WITHIN REACH.
--- NOTE | 2017-02-23 22:35 | NUR ---
PT INCONTINENT OF URINE, NEW ATTENDS AND ZE-CARE PROVIDED. PT NOW RESTING WITH EYES CLOSED, DENIES NEEDS, CALL LIGHT IS WITHIN REACH.
--- NOTE | 2017-02-24 00:10 | NUR ---
PT CALLED OUT, WAS CONFUSED. STATES SHE WANTS TO GO HOME, DISCUESSED WITH HER THAT IT IS THE MIDDLE OF THE NIGHT AND THAT SHE GETS TO GO HOME IN THE MORNING. PT SEEMS TO ACCEPT THIS. GACE HER A SIP OF WATER AND HELPED HER REPOSITION IN BED. DENIES NEEDS, WILL CONTINUE TO MONITOR.
--- NOTE | 2017-02-24 02:22 | NUR ---
IN TO GIVE SCHEDULED TYLENOL. PT INCONTINENT OF URINE, NEW ATTENDS AND ZE-CARE PROVIDED. ASSESSMENT COMPLETED, NO CHANGES SINCE PREVIOUS ASSESSMENT. REMAINS ON 1L O2 VIA NC. DR. STOVER NOTIFIED OF BP: 196/84, NO NEW ORDERS RECEIVED. CALL LIGHT IS WITHIN REACH, WILL CONTINUE TO MONITOR.
--- NOTE | 2017-02-24 05:49 | NUR ---
CALLED DR. STOVER TO REPORT BP:198/83. ASKED HIM IF HE'D LIKE ME TO D/C THE PICC, HE STATED TO WAIT FOR NOW, TO MAKE SURE THAT PT IS ACTUALLY GOING TO D/C TODAY. HE DID STATE TO GIVE HER BLOOD PRESSURE MEDICATION NOW.
--- NOTE | 2017-02-24 06:12 | NUR ---
CONFUSED/FORGETFUL WHEN AWAKE, TALKS TO UNSEEN OTHERS. LUNGS CLEAR, 1L O2 VIA NC. MURMUR AND PACEMAKER. BOWEL TONES ACTIVE. INCONTINENT OF URINE, ATTENDS IN PLACE. SURGICAL SITE OPEN TO AIR, WELL-APPROXIMATED, ABIDA INTACT, SCANT AMOUNT OF OLD BLOOD ON UPPER SITE. SCD'S. CARDIAC/ADA DIET, ACCUCHECKS, SS. PICC HAS GOOD BLOOD RETURN, HL. PAIN WELL CONTROLLED WITH SCHEDULED TYLENOL.
--- NOTE | 2017-02-24 08:13 | NUR ---
MORNING MEDICATIONS GIVEN. RIGHT ARM PICC LINE D/C'D WITH CATHETER TIP INTACT.
--- NOTE | 2017-02-25 08:13 | OR ---
[facility] [address] [place], [place] [address] Signed DATE OF SERVICE: 02/19/2017 PREOPERATIVE DIAGNOSIS: Intertrochanteric fracture, right hip. POSTOPERATIVE DIAGNOSIS: Intertrochanteric fracture, right hip. PROCEDURE: TFN (intramedullary) nailing, right hip. SURGEON: Suleman Fleming MD ANESTHESIA: General. SPECIMEN: There were no specimens. COMPLICATIONS: None. BLOOD LOSS: 100 mL. WHAT WAS DONE: The patient was taken the operating room. After anesthesia was induced and the airway secured, the patient was placed on the fracture table. She was made secure and the fracture was reduced with longitudinal traction and neutral rotation. Biplanar fluoroscopy confirmed an acceptable reduction. The patient was then prepped and draped in a routine sterile fashion. We then made an incision near the tip of the greater trochanter. Thr o ugh this, the curved awl was introduced through the tip of the greater trochanter. We then introduced the guide layla and navigated down to the knee without any difficulty. We then passed the proximal reamer followed by a 12 mm reamer. We then impacted a sh o rt 11 mm TFN nail. We locked it proximally with a spiral blade and distally with a single 5 mm screw. Overall alignment and position was excellent. The wound was gently irrigated and closed in the standard fashion. Sterile dressings were applied. The remy ent was awakened to the recovery room where he arrived in stable condition. Counts were correct and antibiotic protocols were followed. Suleman Fleming MD WFB/Modl Electronically Signed By: SULEMAN FLEMING MD 02/25/17 0813 PATIENT NAME: JENNIFER DEWEY OPERATIVE REPORT DATE OF : 32 PHYSICIAN: SULEMAN FLEMING MD REPORT #: [id number] REPORT IS CONFIDENTIAL AND NOT TO BE RELEASED WITHOUT AUTHORIZATION [address] [place] [address] Signed /[id number] Electronically Signed By: SULEMAN FLEMING MD 02/25/17812 PATIENT NAME: JENNIFER DEWEY OPERATIVE REPORT DATE OF : 32 PHYSICIAN: SULEMAN FLEMING MD REPORT #: [id number] REPORT IS CONFIDENTIAL AND NOT TO BE RELEASED WITHOUT AUTHORIZATION
--- NOTE | 2017-03-05 07:11 | DS ---
[facility] [address] [place], [place] [address] Signed HISTORY OF PRESENT ILLNESS The patient is an elderly white female, who fell out at the [facility] as she was going from one slot machine to another. She was unable to ambulate because of right-sided hip pain and was brought to the emergency room. Examination and x-rays revealed a displaced intertrochanteric fracture of the right hip. She was therefore admitted to the orthopedic service. HOSPITAL COURSE After admission, she was evaluated by the hospitalist service who thought she was medically optimized for surgical intervention. She was therefore taken to the operating room on the where she underwent fixation with a TFN nail. Her surgery was somewhat delayed because she is chronically on Coumadin and she did not immediately reversed with vitamin K, which required us to transfuse her with some fresh frozen and a repeat dose of vitamin K. Intraoperatively, the patient did well with an excellent reduction and stable fixation. Postoperatively, she progressed as expected. She was started back on her Coumadin for anticoagulation and was alternating a Dilaudid and hydrocodone for pain relief perioperatively. She was a somewhat slow progressing through physical therapy primarily out of apprehension and discomfort in the right hip area. She was discharged on the being transferred to a rehab facility of her and her family's choice in the [facility]. We will continue her on the Dilaudid and hydrocodone for pain and have her continue on her Coumadin. She will follow up with her local physician in the [facility]. Her incisions were closed with Dermabond and no suture removal will be required. MD FELICIA Ho/Phyllis / [id number] Electronically Signed By: ELENITA FLEMING MD 03/05/17 0711 PATIENT NAME: JENNIFER DEWEY DISCHARGE SUMMARY DATE OF : 32 PHYSICIAN: ELENITA FLEMING MD REPORT #: [id number] REPORT IS CONFIDENTIAL AND NOT TO BE RELEASED WITHOUT AUTHORIZATION
== END 2017-02-24 08:30 | disposition home or self-care (01) | DRG 481 ==
LOC: ED 20:56 → EDBD 20:57 → ED 20:57 → MS 02-18 00:26
PROVIDERS: ADMIT Orthopaedic Surgery
PROC: 02HV33Z Insertion of Infusion Device into Superior Vena Cava, Percutaneous Approach (ICD-10-PCS; 2017-02-18)
PROC: 0QS634Z Reposition Right Upper Femur with Internal Fixation Device, Percutaneous Approach (ICD-10-PCS; principal; 2017-02-19 08:30)
PROC: 30233N1 Transfusion of Nonautologous Red Blood Cells into Peripheral Vein, Percutaneous Approach (ICD-10-PCS; 2017-02-21)
DX: S72.141A Displaced intertrochanteric fracture of right femur, initial encounter for closed fracture (principal); D62 Acute posthemorrhagic anemia; I48.2 Chronic atrial fibrillation; E78.5 Hyperlipidemia, unspecified; F03.90 Unspecified dementia, unspecified severity, without behavioral disturbance, psychotic disturbance, mood disturbance, and anxiety; G89.18 Other acute postprocedural pain; F39 Unspecified mood [affective] disorder; Z79.4 Long term (current) use of insulin; I11.0 Hypertensive heart disease with heart failure; I50.9 Heart failure, unspecified; E11.51 Type 2 diabetes mellitus with diabetic peripheral angiopathy without gangrene; W19.XXXA Unspecified fall, initial encounter; Z95.0 Presence of cardiac pacemaker; Z79.01 Long term (current) use of anticoagulants
CPT/HCPCS: 01220; 36415; 36430; 36556; 64447; 70450; 71010; 72125; 72170; 73110; 73501; 73502; 73610; 76942; 80048; 80051; 80053; 85025; 85610; 85730; 86850; 86870; 86900; 86901; 86902; 86922; 86927; 93005; 93010; 94761; 94762; 97110; 97116; 97162; 97163; 97530; C1713; J0690; J1170; J1200; J2270; J2274; J2370; J2405; J2704; J2795; J3010; J3430; J7120; P9016